=== PATIENT | female | born 1985 | race Two or more races ===

== ENCOUNTER 2019-06-23 05:25 | Inpatient (IN) | payer OTHER ==
[~2019-06-23] VITALS: Ht 162 cm; Wt 111.6 kg
[~2019-06-23 05:25] MED LIST: FOLI1 PO; PREN-27 PO
[2019-06-23] MEDS ORDERED: RINGERS SOLUTION,LACTATED 1,000 ML IV ONE (06:56)
[2019-06-23] MEDS ORDERED: CITRIC ACID/SODIUM CITRATE 30 ML SOLUTION UDCUP PO ONE (07:00)
[2019-06-23] MEDS ORDERED: DiphenhydrAMINE HCL 50 MG/ML VIAL IVP PRN (07:00)
[2019-06-23] MEDS ORDERED: NALOXONE HCL 0.4 MG/ML VIAL IVP PRN (07:00)
[2019-06-23] MEDS ORDERED: METOCLOPRAMIDE HCL 5 MG/ML 2 ML VIAL IVP ONE (07:00)
[2019-06-23] MEDS ORDERED: ONDANSETRON HCL 4 MG/2 ML VIAL IVP PRN (07:00)
[2019-06-23] MEDS ORDERED: OxyCODONE HCL/ACETAMINOPHEN 5-325 MG TABLET PO PRN (07:15)
[2019-06-23] MEDS ORDERED: ACETAMINOPHEN 1000 MG/ISO-OSM 100 ML IV ONE (07:15)
[2019-06-23] MEDS ORDERED: FentaNYL CITRATE-PF 100 MCG/2 ML VIAL ONE (07:22)
[2019-06-23] MEDS ORDERED: MORPHINE SULFATE/PF 1 MG/ML 10 ML AMP ONE (07:22)
[2019-06-23] MEDS ORDERED: MIDAZOLAM HCL 2 MG/2 ML VIAL ONE (07:22)
[2019-06-23] MEDS ORDERED: BUPIVACAINE HCL/DEX-WATER/PF 0.75% 2 ML AMP ONE (07:23)
[2019-06-23 07:31] LABS: BASOPHILS % (AUTO) 0.2 % (0.0-2.0); EOSINOPHILS % (AUTO) 0.3 % (1.0-6.0); HEMOGLOBIN 11.5 g/dL (12.0-16.0); LYMPHOCYTES # (AUTO) 1.9 K/uL (1.0-4.8); LYMPHOCYTES % (AUTO) 24.7 % (22.0-44.0); MEAN CORPUSCULAR HEMOGLOBIN 27.8 pg (26.0-34.0); MEAN CORPUSCULAR HGB CONC 33.8 G/dL (31.0-37.0); MEAN CORPUSCULAR VOLUME 82 fL (80-100); MONOCYTES # (AUTO) 0.5 K/uL (0.1-1.0); MONOCYTES % (AUTO) 6.3 % (2.0-9.0); NEUTROPHILS # (AUTO) 5.4 K/uL (1.8-7.7); NEUTROPHILS % (AUTO) 68.5 % (40.0-70.0); PLATELET COUNT (AUTO)-OB 220 K/uL (150-450); RED BLOOD CELL COUNT(AUTO) 4.13 MIL/uL (4.00-5.20); RED CELL DISTRIBUTION WIDTH 14.4 % (11.5-14.5)
[2019-06-23] MEDS ORDERED: OXYGEN THERAPY IH SCH ×5 (08:00)
[2019-06-23] MEDS ORDERED: LANOLIN 7 GM OINTMENT TP PRN (09:30)
[2019-06-23] MEDS ORDERED: ACETAMINOPHEN/CODEINE 300-30 MG TABLET PO PRN ×2 (09:30)
[2019-06-23] MEDS ORDERED: MEPERIDINE-PF 25 MG/ML VIAL IVP ONE (10:15)
[2019-06-23] MEDS ORDERED: PREN-217 PO (11:58)
[2019-06-23] MEDS ORDERED: INFLUENZA VIRUS VACCINE QVS 2019-20 (3YR+)/PF 60 MCG/0.5 ML SYRINGE IM ONE (12:15)
[2019-06-23] MEDS: DEXTROSE 5%-0.45% SODIUM CHL 1,000 ML IV SCH ×2 (15:07→19:12)
[2019-06-23] MEDS: MAGNESIUM HYDROXIDE SUSPENSION 30 ML UDCUP PO SCH (21:41)
[2019-06-23] MEDS: KETOROLAC TROMETHAMINE 30 MG/ML VIAL IVP SCH (21:42)
[2019-06-24] MEDS: DEXTROSE 5%-0.45% SODIUM CHL 1,000 ML IV SCH ×2 (00:40→06:40)
[2019-06-24] MEDS: KETOROLAC TROMETHAMINE 30 MG/ML VIAL IVP SCH (03:31)
[2019-06-24] MEDS ORDERED: OXYTOCIN 10 UNITS/ML VIAL IM ONE (05:32)
[2019-06-24] MEDS ORDERED: EPHEDrine SULFATE 50 MG/ML VIAL IM ONE (05:32)
[2019-06-24] MEDS ORDERED: LIDOCAINE/PF 2% 5 ML VIAL IM ONE (05:32)
[2019-06-24] MEDS ORDERED: 0.9% SODIUM CHLORIDE 10 ML VIAL IVP ONE (05:32)
[2019-06-24] MEDS ORDERED: KETOROLAC TROMETHAMINE 60 MG/2 ML VIAL IM ONE (05:32)
[2019-06-24] MEDS ORDERED: METOCLOPRAMIDE HCL 5 MG/ML 2 ML VIAL IVP ONE (05:32)
[2019-06-24] MEDS ORDERED: DEXAMETHASONE SOD PHOS 4 MG/ML VIAL IVP ONE (05:32)
[2019-06-24] MEDS ORDERED: ONDANSETRON HCL 4 MG/2 ML VIAL IVP ONE (05:32)
[2019-06-24] MEDS: IBUPROFEN 800 MG TABLET PO SCH ×3 (06:40→20:52)
[2019-06-24] MEDS: MAGNESIUM HYDROXIDE SUSPENSION 30 ML UDCUP PO SCH ×2 (09:52→20:52)
[2019-06-25] MEDS: IBUPROFEN 800 MG TABLET PO SCH ×3 (07:45→20:26)
[2019-06-25] MEDS: MAGNESIUM HYDROXIDE SUSPENSION 30 ML UDCUP PO SCH (21:00)
[2019-06-26] MEDS: IBUPROFEN 800 MG TABLET PO SCH ×2 (01:34→08:37)
[2019-06-26] MEDS: MAGNESIUM HYDROXIDE SUSPENSION 30 ML UDCUP PO SCH (09:00)
[2019-06-26] MEDS ORDERED: IBUP-2071 PO (10:09)
== END 2019-06-26 12:15 | disposition home or self-care (01) | DRG 788 ==
LOC: 4S 05:25 → PREOBSVTOIN 07-20 06:10
PROVIDERS: ADMIT Obstetrics & Gynecology; ATTEND Obstetrics & Gynecology
PROC: 10D00Z1 Extraction of Products of Conception, Low, Open Approach (ICD-10-PCS; principal; 2019-06-23)
PROC: 3E02340 Introduction of Influenza Vaccine into Muscle, Percutaneous Approach (ICD-10-PCS; 2019-06-23)
DX: O34.211 Maternal care for low transverse scar from previous cesarean delivery (principal); Z3A.39 39 weeks gestation of pregnancy; Z37.0 Single live birth; Z23 Encounter for immunization
CPT/HCPCS: 86850; 86900; 86901; 87081; 90686; J0131; J0690; J1100; J1885; J2175; J2250; J2405; J2590; J2765; J3010; J3490; J7120